=== PATIENT | male | born 1990 | race Asian ===

== ENCOUNTER 2019-02-24 13:32 | Emergency (ER) | payer OTHER ==
[2019-02-24 13:39] VITALS: BP 112/69
--- NOTE | 2019-02-24 13:53 | ER Document Report ---
HPI - HPI Time Seen by Provider: 02/24/19 13:47 Pain Level: 3 Context: Patient is a 28-year-old male who presents emergency department with a chief complaint of a splinter in his right palm. He states that he was picking up some wood and got a splinter in his hand. He was able to take out a portion of the splinter, but was then seen by [facility] because there was another piece of the splinter still in his hand. He states that he still has pain in the area. He is up-to-date on his immunizations. Denies smoking, drug use, and alcohol use. - CONSTITUTIONAL Constitutional: DENIES: Fever - EENT EENT: DENIES: Sore Throat, Ear Pain - NEURO Neurology: DENIES: Headache - CARDIOVASCULAR Cardiovascular: DENIES: Chest pain - RESPIRATORY Respiratory: DENIES: Trouble Breathing - MUSCULOSKELETAL Musculoskeletal: REPORTS: Extremity pain - Right palm - DERM Skin Color: Normal Skin Problems: None Past Medical History - General Information source: Patient - Social History Smoking Status: Never Smoker Frequency of alcohol use: Rare Drug Abuse: None Family History: Reviewed & Not Pertinent Vertical Provider Document - CONSTITUTIONAL Agree With Documented VS: Yes Exam Limitations: No Limitations General Appearance: No Apparent Distress - INFECTION CONTROL TRAVEL OUTSIDE OF THE [place] IN LAST 30 DAYS: No - HEENT HEENT: Atraumatic, Normocephalic - NECK Neck: Normal Inspection - RESPIRATORY Respiratory: No Respiratory Distress - CARDIOVASCULAR Cardiovascular: Regular Rate, Regular Rhythm Pulses: Normal: Radial - MUSCULOSKELETAL/EXTREMETIES Musculoskeletal/Extremeties: FROM, Non-Tender - NEURO Level of Consciousness: Awake, Alert, Appropriate Motor/Sensory: No Motor Deficit, No Sensory Deficit - DERM Integumentary: Warm, Dry Course - Re-evaluation Re-evalutation: 02/24/19 14:09 I explored the area where the splinter was, but did not visualize any splinter during the exam. She tolerated the procedure well. I have instructed him to use absorbent and water soaks to help with any pain. I do not suspect cellulitis, there is no redness noted to the area. Can also take ibuprofen and Tylenol as needed for pain. Verbal discharge instructions were given to the patient. They verbalized understanding. They are stable for discharge. - Vital Signs Vital signs: Temp Pulse Resp BP Pulse Ox 98.4 F 77 16 112/69 97 02/24/19 13:38 02/24/19 13:38 02/24/19 13:38 02/24/19 13:38 02/24/19 13:38 Discharge - Discharge Clinical Impression: Hand pain, right Condition: Stable Disposition: HOME, SELF-CARE Additional Instructions: You were seen today in the emergency department for right hand pain. There was no splinter on your exam. Please follow-up with your PCM as needed. Please soak your hand in Epsom salts and water twice a day for 20 minutes. He can take Tylenol 1000 mg and ibuprofen 600 mg every 6 hours as needed for pain.
== END 2019-02-24 14:22 | disposition home or self-care (01) ==
LOC: ER 13:32
DX: M79.641 Pain in right hand (principal)
CPT/HCPCS: 99283